=== PATIENT | female | born 1960 | race Caucasian/White ===

== ENCOUNTER 2020-01-28 20:21 | Emergency (ER) | payer OTHER ==
[~2020-01-28] VITALS: Ht 149.9 cm; Wt 138.3 kg
[~2020-01-28 20:21] MED LIST: AMARYL2 MG PO; DOXYCYCLINE 10100 MG PO; DYAZIDE 37.5-21 EACH PO; GLUCOSAMINE-MS1 EAC1 PO; IBUPROFEN 800800 M1 PO; METFORMIN HCL500 MG PO; MEVACOR40 MG PO; MULTIVITAMINS1 EAC7 PO; NEURONTIN 300300 M1 PO; NORCO 10-325 T1 EACH PO; PRILOSEC 20 MG20 MG PO; REGLAN 10 MG TA10 MG PO; VICODIN 5-5001 EACH PO; [UNRECOGNIZED DRUG - MIXTURE]
[2020-01-28 20:25] VITALS: BP 180/109
[2020-01-28] MEDS ORDERED: LISINOPRIL-HCT1 EAC1 PO (20:32)
[2020-01-29 00:12] LABS: ABSOLUTE NEUTROPHILS 5.7 thou/uL (1.4-8.2); BASOPHILS 0.6 % (0.0-2.0); CALCIUM 9.3 mg/dL (8.5-10.1); EOSINOPHILS 0.9 % (0.0-3.0); HEMATOCRIT 40.7 % (37.0-47.0); HEMOGLOBIN 13.9 gm/dL (12.0-15.0); LYMPHOCYTES 28.2 % (24.0-44.0); MCH 30.2 pg (26.0-34.0); MCHC 34.1 g/dL (28.0-37.0); MCV 88.5 fL (80.0-100.0); MONOCYTES 7.6 % (1.0-8.0); PLATELET COUNT 204 thou/uL (150-400); POLYS 62.7 % (36.0-66.0); POTASSIUM 3.6 mmol/L (3.5-5.1); RDW 13.6 % (10.5-14.5); WBC 9.1 thou/uL (4.0-11.0)
[2020-01-29 00:17] LABS: ALBUMIN 3.7 g/dL (3.4-5.0); TOTAL BILIRUBIN 0.5 mg/dL (0.2-1.0); TOTAL PROTEIN 7.3 g/dL (6.4-8.2)
[2020-01-29] MEDS ORDERED: ZPAK PO (00:44)
[2020-01-29] MEDS ORDERED: GUAIFEN-CODEINE10 ML PO (00:44)
--- NOTE | 2020-01-29 07:09 | EKG ---
[facility] [address] ELECTROCARDIOGRAM REPORT Name: CONRAD IGNACIO [id number] Admission: 01/28/20 Attend Phys: Discharge: 01/29/20 Date of : 58 Report #: [id number] THIS REPORT FOR: cc: Demetrius Torrez MD, Christopher B. MD Santiago, Patrick MD [facility] ~ THIS REPORT FOR: //name// [facility] ED Test Date: 2020-01-28 Test Time: 22:17:28 Pat Name: CONRAD IGNACIO Department: Room: Gender: F Data Programmer: josé miguel : 1960 Requested By: Joseph Fontenot Order Number: [id number] MD: Navin Mercado Measurements Intervals [place] Rate: 102 P: 35 MT: 164 QRS: 22 QRSD: 86 T: -4 QT: 332 QTc: 433 Interpretive Statements Sinus tachycardia Low voltage, precordial leads Compared to ECG 06/15/2015 15:32:09 Low QRS voltage now present Sinus rhythm no longer present Electronically Signed On 01-29-2020 7:09:52 EDUCATION COUNSELOR by Navin Mercado [email or web address] <ELECTRONICALLY SIGNED> By: Navin Mercado MD, FACC 01/29/20 0709 16 Navin Mercado MD, [facility] /EPI
== END 2020-01-29 01:09 | disposition home or self-care (01) ==
LOC: ER 20:21
PROVIDERS: Emergency Medicine
DX: J06.9 Acute upper respiratory infection, unspecified (principal); R06.02 Shortness of breath; I10 Essential (primary) hypertension; E78.5 Hyperlipidemia, unspecified; Z90.49 Acquired absence of other specified parts of digestive tract; Z79.899 Other long term (current) drug therapy; Z79.1 Long term (current) use of non-steroidal anti-inflammatories (NSAID)

== ENCOUNTER 2020-05-13 14:18 | Inpatient (IN) | payer OTHER ==
[~2020-05-13] VITALS: Ht 149.9 cm; Wt 138.3 kg
[~2020-05-13 14:18] MED LIST changes: +GUAIFEN-CODEINE10 ML PO; +LISINOPRIL-HCT1 EAC1 PO; +ZPAK PO
[2020-05-13 14:21] VITALS: BP 178/85
[2020-05-13] MEDS ORDERED: AZELASTINE137 MCG/0. SPRAY (14:24)
[2020-05-13 15:22] LABS: ABSOLUTE NEUTROPHILS 4.5 thou/uL (1.4-8.2); BASOPHILS 0.6 % (0.0-2.0); EOSINOPHILS 1.2 % (0.0-3.0); HEMATOCRIT 39.2 % (37.0-47.0); HEMOGLOBIN 12.7 gm/dL (12.0-15.0); LYMPHOCYTES 25.9 % (24.0-44.0); MCHC 32.4 g/dL (28.0-37.0); MCV 89.7 fL (80.0-100.0); MONOCYTES 7.3 % (1.0-8.0); PLATELET COUNT 186 thou/uL (150-400); RBC 4.37 mil/uL (4.20-5.00)
[2020-05-13 15:29] LABS: ANION GAP 8 mmol/L (7-16); BUN 15 mg/dL (7-18); CALCIUM 9.6 mg/dL (8.5-10.1); CHLORIDE 104 mmol/L (98-107); CO2 28 mmol/L (21-32); CREATININE 0.7 mg/dL (0.6-1.0); GLUCOSE 101 mg/dL (74-106); POTASSIUM 3.3 mmol/L (3.5-5.1); SODIUM 140 mmol/L (136-145)
[2020-05-13 15:39] LABS: ALBUMIN 3.7 g/dL (3.4-5.0); AMYLASE 86 U/L (25-115); DIRECT BILIRUBIN 0.2 mg/dL (<0.1-0.2); LIPASE 311 U/L (73-393); MAGNESIUM 1.2 mg/dL (1.8-2.4); PHOSPHORUS 3.8 mg/dL (2.6-4.7); SGOT 22 U/L (15-37); SGPT 33 U/L (14-59); TOTAL BILIRUBIN 0.8 mg/dL (0.2-1.0); TOTAL PROTEIN 7.2 g/dL (6.4-8.2); TROPONIN-I <0.06 ng/mL (<0.06)
[2020-05-13 17:36] LABS: URINE BILIRUBIN NEGATIVE (Negative); URINE BLOOD TRACE (Negative); URINE CLARITY CLEAR; URINE COLOR YELLOW; URINE GLUCOSE-RANDOM* NEGATIVE (Negative); URINE KETONES NEGATIVE (Negative); URINE PROTEIN (DIPSTICK) 2+ (Negative); URINE SPECIFIC GRAVITY >= 1.030 (1.005-1.035); URINE UROBILINOGEN 0.2 E.U./dl (0.2-1.0)
[2020-05-13 17:37] LABS: URINE LEUKOCYTES-REFLEX 1+ (Negative); URINE NITRITE-REFLEX POSITIVE (Negative)
[2020-05-13 17:51] LABS: BACTERIA-REFLEX >30 Many /HPF (None Seen); MUCUS 0-3 Light strn/LPF (None Seen)
[2020-05-13 17:52] LABS: URINE RBC 0-2 Rare /HPF (0-2); URINE WBC-REFLEX >25 Many /HPF (0-5)
[2020-05-13 17:53] LABS: SQUAMOUS None Seen /LPF (0-3)
[2020-05-13 17:54] LABS: CASTS None Seen /LPF (None Seen); CRYSTALS None Seen /LPF (None Seen); YEAST-REFLEX Present (None Seen)
[2020-05-13 18:33] VITALS: BP 158/84
--- NOTE | 2020-05-13 18:34 | NUR ---
CALLED 2N- INFORMED MANAGEMENT ACCOUNTS MANAGER HANDOFF TOOL HAS BEEN SENT
[2020-05-13 18:46] VITALS: BP 157/85
--- NOTE | 2020-05-13 19:22 | NUR ---
WAS NOTIFIED PATIENT IS GOING TO ROOM 356, ATTEMPTED TO CALL REPORT WAS NOTIFIED NURSE IS IN REPORT AND NEEDS APPROX 5-10 MINUTES.
[2020-05-13 19:31] VITALS: BP 158/85
[2020-05-13 19:58] VITALS: BP 157/102
--- NOTE | 2020-05-14 00:44 | NUR ---
PT ARRIVED TO THE FLOOR VIA CART WITH ER STAFF. PLACED IN ROOM 356. ADMISSION ASSESSMENTS COMPLETED. SEE CHARTING. ORDERS IN PROGRESS.
[2020-05-14 04:35] VITALS: BP 143/91
[2020-05-14 06:14] LABS: CALCIUM 9.1 mg/dL (8.5-10.1); CREATININE 0.7 mg/dL (0.6-1.0)
--- NOTE | 2020-05-14 07:17 | EKG ---
[place] [address] [facility] [place] [address] ELECTROCARDIOGRAM REPORT Name: CONRAD IGNACIO Room #: 356-P [facility]#: [id number] Admission: 05/13/20 Attend Phys: Chayito Claudio MD Discharge: Date of : 58 Report #: [id number] [facility] ED Test Date: 2020-05-13 Test Time: 16:07:55 Pat Name: CONRAD IGNACIO Department: Room: 356 Gender: F Traffic Engineer: KERMIT : 1960 Requested By: Jomar Cain Order Number: [id number] MD: Navin Mercado Measurements Intervals [place] Rate: 93 P: 39 PA: 182 QRS: 30 QRSD: 82 T: 1 QT: 350 QTc: 436 Interpretive Statements Sinus rhythm Borderline T abnormalities, inferior leads Compared to ECG 01/28/2020 22:17:28 T-wave abnormality now present Sinus tachycardia no longer present Electronically Signed On 05-14-2020 7:17:34 CDT by Navin Mercado [email or web address] <ELECTRONICALLY SIGNED> By: Navin Mercado MD, [facility] 05/14/20 0717 06 06 Navin Mercado MD, FACC /EPI
[2020-05-14 08:46] VITALS: BP 144/74
--- NOTE | 2020-05-14 14:05 | 2DMMODE ---
[facility] [place] [address] 2 D/M-MODE ECHOCARDIOGRAM Name: CONRAD IGNACIO Room #: 356-P ADM IN M.R.#: [id number] Admission: 05/13/20 Attend Phys: Chayito Claudio MD Discharge: Date of : 58 Report #: [id number] THIS REPORT FOR: cc: Demetrius Torrez MD, Christopher B. MD Santiago, Patrick MD [facility] ~ APPROVED REPORT Study performed: 05/14/2020 12:50:17 EXAM: Comprehensive 2D, Doppler, and color-flow Echocardiogram Patient Location: Bedside Room #: 356 Status: routine BSA: 2.26 HR: 89 bpm BP: 143/91 mmHg Rhythm: NSR Other Information Study Quality: Adequate Indications Congestive Heart Failure Diabetes Dyspnea Hypertension/HDD Morbid obesity 2D Dimensions RVDd: 40.75 mm IVSd: 9.46 (7-11mm) LVOT Diam: 21.35 (18-24mm) LVDd: 48.68 mm PWd: 10.36 (7-11mm) Ascending Ao: 28.87 (22-36mm) LVDs: 33.01 (25-40mm) Left Atrium: 36.79 (27-40mm) Aortic Root: 32.25 mm IVC: 24.00 mm Volumes Left Atrial Volume (Systole) Single Plane 4CH: 68.36 mL Single Plane 2CH: 39.97 mL LA ESV Index: 25.00 mL/m2 Aortic Valve [facility] [address] [place] [address] 2 D/M-MODE ECHOCARDIOGRAM Name: CONRAD IGNACION Room #: 356-P [facility] IN .R.#: [id number] Admission: 05/13/20 Attend Phys: Bang Luke Discharge: Date of : 58 Report #: [id number] AoV Peak Shawn.: 1.83 m/s AO Peak Gr.: 13.38 mmHg LVOT Max P.10 mmHg LVOT Max V: 1.24 m/s TAYA Vmax: 2.42 cm2 Mitral Valve E/A Ratio: 0.7 MV Decel. Time: 264.42 ms MV E Max Shawn.: 0.81 m/s MV A Shawn.: 1.12 m/s MV PHT: 76.68 ms IVRT: 115.34 ms Pulmonary Valve PV Peak Shawn.: 1.21 m/s PV Peak Gr.: 5.88 mmHg Pulmonary Vein P Vein S: 0.84 m/s P Vein A: 0.37 m/s P Vein D: 0.47 m/s P Vein A Dur.: 110.7 msec P Vein S/D Ratio: 1.79 Tricuspid Valve TR Peak Shawn.: 3.04 m/s TR Peak Gr.: 37.07 mmHg PA Pressure: 47.00 mmHg Left Ventricle The left ventricle is normal size. There is normal LV segmental wall motion. There is normal left ventricular wall thickness. The left ventricular systolic function is normal. The left ventricular ejection fraction is within the normal range. LVEF is 55-60%. Grade I - abnormal relaxation pattern. Right Ventricle The right ventricle is normal size. The right ventricular systolic function is normal. Atria Left atrium is at the upper limits of normal. Right atrium is at the upper limits of normal. Aortic Valve The aortic valve is normal in structure. No aortic regurgitation is present. There is no aortic valvular stenosis. Mitral Valve [facility] [address] [place] [address] 2 D/M-MODE ECHOCARDIOGRAM Name: CONRAD IGNACIO Room #: 356-P ADM IN .R.#: [id number] Admission: 05/13/20 Attend Phys: Bang Luke Discharge: Date of : 58 Report #: [id number] The mitral valve is normal in structure. Mild mitral regurgitation. No evidence of mitral valve stenosis. Tricuspid Valve The tricuspid valve is normal in structure. There is mild tricuspid regurgitation. Estimated PAP 47 mmHg. There is moderate pulmonary hypertension. Pulmonic Valve The pulmonary valve is normal in structure. There is no pulmonic valvular regurgitation. Great Vessels The aortic root is normal in size. IVC is dilated and collapses <50% with inspiration. Pericardium There is no pericardial effusion. Critical Notification Physician Notified <Conclusion> Normal left ventricular size/wall thickness Ejection fraction 55% Grade 1 diastolic dysfunction Normal right ventricular size/function Borderline enlargement left atrium Color-flow Doppler study was performed of the aortic/mitral/tricuspid/pulmonary valve Normal aortic valve structure and function Mild mitral valve insufficiency Mild tricuspid valve insufficiency Pulmonary systolic pressure estimated at 47 mmHg Normal aortic root size Normal IVC size and response to respiration No pericardial effusion <ELECTRONICALLY SIGNED> By: Navin Mercado MD, FACC 05/14/20 1404 140 140 Navin Mercado MD, FACC /INF
[2020-05-14 15:01] VITALS: BP 150/91
--- NOTE | 2020-05-14 15:40 | NUR ---
INITIAL ASSESSMENT: SW reviewed chart and spoke with nursing and attending physician. Pt was admitted from home due to hypokalemia. Pt was placed in Enhanced Isolation to r/o COVID. Pt's test was negative. Pt is on IV abx and lasix. SW spoke with pt via phone. Introduced role of SW. Pt is alert/orientated x 4. Pt reports she lives at home. Prior to admission, pt was independent with ADLs. Pt has a cane and walker to use if needed. No hx of services or post-acute placement. Pt's PCP is Dr. Dougie Torrez. Plan is for pt to discharge home when medically stable. SW is following to assist as needed with discharge planning.
[2020-05-14 17:35] VITALS: BP 152/90
--- NOTE | 2020-05-14 19:25 | NUR ---
STARTED ON BOWEL PREP THIS PM FOR PROCEDURE IN AM. SHE IS DRINKING VERY WELL. SHE CONT TO AHVE GENERALIZED PAIN AND PRN PAIN MEDICATION ADMINISTERED. WILL CONT WIHT PLAN OF CARE.
[2020-05-14 20:19] VITALS: BP 155/90
[2020-05-15 03:38] VITALS: BP 139/83
--- NOTE | 2020-05-15 07:42 | NUR ---
ASSUMED CARE AT 1900. PT FINISHING BOWEL PREP, HAD NAUSEA WITH VOMITING OF 500 ML GREEN LIQUID; ZOFRAN GIVEN , NO FURTHER NAUSEA OVERNIGHT. GAVE PAIN MEDS Q4 OVERNIGHT. PT REFUSED NOCTURNAL SAT STUDY, STATING SHE DID NOT WANT TO BE HOOKED UP TO SOMETHING ELSE WHILE TRYING TO DO A BOWEL PREP AND GETTING UP TO BATHROOM FREQUENTLY; SHE REPORTED BEING MORE OPEN TO COMPLETING IT MONDAY NIGHT. STOOL THIS AM WAS A SEE-THROUGH DEEP YELLOW COLOR. NO OTHER CONCERNS, SHIFT REPORT GIVEN O700.
[2020-05-15 09:00] VITALS: BP 152/80
[2020-05-15 12:44] VITALS: BP 150/96
[2020-05-15 14:42] LABS: CALCIUM 9.3 mg/dL (8.5-10.1); CREATININE 0.8 mg/dL (0.6-1.0); POTASSIUM 3.5 mmol/L (3.5-5.1)
[2020-05-15 16:35] VITALS: BP 151/93
--- NOTE | 2020-05-15 16:40 | NUR ---
SW reviewed chart and spoke with nursing and attending physician. Or had EGD/colonoscopy today. Pt is on 3L of O2 and IV abx. Possible weekend discharge. SW met with pt at bedside to discuss discharge plan. Pt was not on O2 prior to admission. Pt will need a rest/exercise oximetry completed prior to discharge to determine if pt needs home O2. RT to assist if pt needs home O2 over the weekend. Pt will have transportation home when discharged. JEISON is following to assist as needed with discharge planning.
[2020-05-15 19:27] VITALS: BP 162/88
--- NOTE | 2020-05-15 19:28 | NUR ---
RN ASSUMED PT'S CARE AT 0700AM , PT IS A&OX3, PT IS TOLERATVED EGD TODAY, PT DENIES N/V AND ABD MONSERRAT, PT 'S O2 2L/MIN/NC, PT'S VS ARE STABLE BY THIS TIME.
--- NOTE | 2020-05-15 21:19 | P ---
[facility] [place] [address] PROCEDURE REPORT Name: CONRAD IGNACIO Room #: 356-P ADM IN M.R.#: [id number] Admission: 05/13/20 Attend Phys: Chayito Claudio MD Discharge: Date of : 58 Report #: [id number] THIS REPORT FOR: cc: Demetrius Torrez MD, Christopher B. MD McElhinney, Christian C. MD ~ DATE OF SERVICE: 05/15/2020 PROCEDURE PERFORMED: Colonoscopy with biopsies and polypectomy. HISTORY OF PRESENT ILLNESS: The patient is a 59-year-old female with abdominal pain, nausea, and bloating. CT scan of the abdomen and pelvis on admission showing sigmoid diverticulosis. No evidence of diverticulitis or calcified omental infarction. No family history of colon cancer. DESCRIPTION OF PROCEDURE: The risks and benefits of the procedure were explained to the patient, those risks including but not limited to bleeding, perforation and the risk of sedation. She understood these risks and gave informed consent. Sedation was given using propofol per anesthesia. Next, a digital rectal exam showed small external hemorrhoids, otherwise normal. Next, using a standard Olympus colonoscope, the scope was placed in the patient's anus and advanced under direct vision to the cecum. The overall prep was good. The cecum and ileocecal valve were normal in appearance. Terminal ileum was intubated and normal in appearance. Ascending, transverse and descending colon were normal. Random biopsies were obtained to rule out the possibility of microscopic colitis. Diverticulosis was noted throughout the sigmoid colon, no evidence of inflammation. In the rectum, an 8 mm partially pedunculated polyp was noted. This was removed by snare cautery. Also noted on retroflexion were small internal hemorrhoids, nonbleeding. At this point, the scope was then withdrawn and the procedure terminated. The patient tolerated the procedure well. IMPRESSION: 1. Rectal polyp. 2. Sigmoid diverticulosis. 3. Internal and external hemorrhoids. 4. Otherwise, normal colonoscopy. RECOMMENDATIONS: 1. Await biopsy results. 2. Etiology of abdominal pain is unclear. We will await biopsies from EGD and colonoscopy today. We will start to advance diet. Consider Levsin on a p.r.n. basis. [address] [address] PROCEDURE REPORT Name: CONRAD IGNACIO Room #: 356-P [facility] IN M.R.#: [id number] Admission: 05/13/20 Attend Phys: Chayito Claudio MD Discharge: Date of : 58 Report #: [id number] Thank you for allowing me to participate in her care. <ELECTRONICALLY SIGNED> By: Sanya Cottrell MD 05/15/209 1156 28 Sanya Cottrell MD /nt
--- NOTE | 2020-05-15 21:19 | P ---
[facility] [place] [address] PROCEDURE REPORT Name: CONRAD IGNACIO Room #: 356-P [facility] IN M.R.#: [id number] Admission: 05/13/20 Attend Phys: Chayito Claudio MD Discharge: Date of : 58 Report #: [id number] THIS REPORT FOR: cc: Demetrius Torrez MD, Christopher B. MD McElhinney, Christian C. MD ~ DATE OF SERVICE: 05/15/2020 PROCEDURE PERFORMED: Upper endoscopy with biopsies and esophageal dilation. HISTORY OF PRESENT ILLNESS: The patient is a 59-year-old female who presented to the Emergency Room with abdominal pain and nausea. It has been ongoing for several weeks. She also complains of abdominal bloating, pain radiates to her right side, worse after eating. She has had a previous cholecystectomy. She also complains of dysphagia with solids only. She does have a history of gastroesophageal reflux disease and history of hiatal hernia and takes Prilosec on a daily basis. CT scan of the abdomen and pelvis shows thickened stomach and distal esophagus, which could reflect gastritis or reflux. Plan is for EGD and colonoscopy today. DESCRIPTION OF PROCEDURE: The risks and benefits of the procedure were explained to the patient, those risks including but not limited to bleeding, perforation and the risk of sedation. She understood these risks and gave informed consent. Sedation was given using propofol per anesthesia. Next, using a standard Olympus upper endoscope, the scope was placed in the patient's mouth and advanced under direct vision through the esophagus, stomach and into the second portion of the duodenum. The larynx was normal in appearance. The esophagus was normal throughout. The GE junction was normal. No evidence of esophagitis. Upon entering the stomach, a small hiatal hernia was noted. Overall, there was a mild gastritis in the body and antrum. Biopsies were obtained to rule out H. pylori. No evidence of ulcerations or erosions. The pylorus was normal and patent. The duodenal bulb, first and second portion were all normal. Because of the patient's history of abdominal bloating, biopsies were obtained to rule out the possibility of celiac sprue. Scope was then brought back up into the patient's stomach and a Savary guidewire was inserted through the scope, leaving the guidewire in place as the scope was then withdrawn. Next, a 51-Italian Savary dilation was then performed of the esophagus without difficulty. The wire and dilator removed. The scope was reintroduced into the patient's stomach. There was no evidence of mucosal tear after dilation. The scope was then withdrawn and the procedure terminated. The patient tolerated the procedure well. IMPRESSION: 1. Small hiatal hernia. 2. Mild gastritis. [address] [address] PROCEDURE REPORT Name: CONRAD IGNACIO Room #: 356-P [facility] IN M.R.#: [id number] Admission: 05/13/20 Attend Phys: Chayito Claudio MD Discharge: Date of : 58 Report #: [id number] 3. Otherwise, normal upper endoscopy. RECOMMENDATIONS: 1. Await biopsy results. 2. Continue PPI therapy. 3. Observe the patient post-dilation. 4. We will proceed with colonoscopy next today. Thank you for allowing me to participate in her care. <ELECTRONICALLY SIGNED> By: Sanya Cottrell MD 05/15/20 2119 1127 192 Sanya Cottrell MD /nt
[2020-05-15 23:33] VITALS: BP 145/73
[2020-05-16 03:42] VITALS: BP 125/75
[2020-05-16 08:00] VITALS: BP 140/78
[2020-05-16 11:39] VITALS: BP 145/85
[2020-05-16 13:47] LABS: URINE BILIRUBIN NEGATIVE (Negative); URINE BLOOD 1+ (Negative); URINE CLARITY CLEAR; URINE COLOR YELLOW; URINE GLUCOSE-RANDOM* NEGATIVE (Negative); URINE KETONES NEGATIVE (Negative); URINE LEUKOCYTES-REFLEX NEGATIVE (Negative); URINE NITRITE-REFLEX NEGATIVE (Negative); URINE PROTEIN (DIPSTICK) 1+ (Negative); URINE UROBILINOGEN 0.2 E.U./dl (0.2-1.0)
[2020-05-16 13:59] LABS: SQUAMOUS 0-3 Few /LPF (0-3)
[2020-05-16 14:01] LABS: BACTERIA-REFLEX None Seen /HPF (None Seen); CASTS None Seen /LPF (None Seen); CRYSTALS None Seen /LPF (None Seen); URINE RBC None Seen /HPF (0-2); URINE WBC-REFLEX 0-5 Rare /HPF (0-5)
[2020-05-16 16:13] VITALS: BP 158/78
--- NOTE | 2020-05-16 18:40 | NUR ---
RN ASSUMED PT'S CARE AT 0700AM, PT IS A&OX3, PT IS ON O2 2L/MIN/NC, PT STILL HAS SOB WITH ACTIVITIES, PT IS CONTINUING IV ABX AND PAIN MAANGEMENT , PT'S VS AND O2SAT ARE STABLE BY THIS TIME. PT GETS UP TO BATH ROOM BY HERSELF.
[2020-05-16 19:24] VITALS: BP 178/71
[2020-05-17 03:38] VITALS: BP 151/91
[2020-05-17 03:45] LABS: ABSOLUTE NEUTROPHILS 6.4 thou/uL (1.4-8.2); BASOPHILS 0.2 % (0.0-2.0); EOSINOPHILS 0.1 % (0.0-3.0); HEMATOCRIT 39.3 % (37.0-47.0); HEMOGLOBIN 12.7 gm/dL (12.0-15.0); MCH 29.3 pg (26.0-34.0); MCHC 32.4 g/dL (28.0-37.0); MCV 90.2 fL (80.0-100.0); MONOCYTES 7.9 % (1.0-8.0); PLATELET COUNT 209 thou/uL (150-400); POLYS 74.8 % (36.0-66.0); RBC 4.36 mil/uL (4.20-5.00); RDW 14.1 % (10.5-14.5); WBC 8.5 thou/uL (4.0-11.0)
[2020-05-17 03:54] LABS: CALCIUM 9.2 mg/dL (8.5-10.1); CREATININE 0.8 mg/dL (0.6-1.0); PHOSPHORUS 2.8 mg/dL (2.5-4.9); POTASSIUM 3.4 mmol/L (3.5-5.1); TOTAL BILIRUBIN 0.5 mg/dL (0.2-1.0)
[2020-05-17 03:55] LABS: ALBUMIN 3.7 g/dL (3.4-5.0); TOTAL PROTEIN 7.4 g/dL (6.4-8.2)
[2020-05-17 08:30] VITALS: BP 150/90
[2020-05-17 12:29] VITALS: BP 144/87
[2020-05-17 15:01] LABS: BE(vivo) 2.6 mmol/L (-2 to +3); HCO3 26.3 mmol/L (22.0-26.0); PCO2 37.6 mmHg (35.0-45.0); PO2 76.9 mmHg (80.0-100.0); pH 7.463 (7.360-7.450); sO2 96.1 % (92.0-98.0)
[2020-05-17 15:11] VITALS: BP 164/101
[2020-05-17 16:29] VITALS: BP 142/90
--- NOTE | 2020-05-17 19:39 | NUR ---
RN ASSUMED PT'S CARE AT 0700AM, PT IS A&OX4, PT IS ON O2 2L/MIN/NC, PT'S VS ARE STABLE, BUT PT HAS SOB WITH ACTIVITIES, PULMONOLDY CONSULT TODAY, NEW ORDER RECEIVED,
[2020-05-17 19:45] VITALS: BP 143/73
[2020-05-18 04:37] VITALS: BP 141/83
[2020-05-18 05:12] LABS: ANION GAP 12 mmol/L (7-16); BUN 21 mg/dL (7-18); CALCIUM 9.2 mg/dL (8.5-10.1); CHLORIDE 99 mmol/L (98-107); CO2 29 mmol/L (21-32); CREATININE 0.7 mg/dL (0.6-1.0); GLUCOSE 208 mg/dL (74-106); PHOSPHORUS 4.1 mg/dL (2.5-4.9); POTASSIUM 3.5 mmol/L (3.5-5.1); SODIUM 140 mmol/L (136-145); TROPONIN-I <0.06 ng/mL (<0.06)
--- NOTE | 2020-05-18 07:45 | NUR ---
PROGRESS PT PAIN CONTROLLED WITH ORAL PAIN MEDS IV ANTIBIOTICS GIVEN ORDERED UP AD SURESH VOIDING QS. VSS CONTINUE POC.
[2020-05-18 07:46] VITALS: BP 148/86
[2020-05-18 08:36] LABS: CHOLESTEROL 212 mg/dL (<200); HDL CHOLESTEROL 75 mg/dL (>40); LDL CHOLESTEROL 120 mg/dL (<100); TC:HDL 2.8 Ratio (Not establshd); TRIGLYCERIDE 89 mg/dL (<150); VLDL 18 mg/dL (<40)
--- NOTE | 2020-05-18 11:05 | NUR ---
REFERRAL GIVEN TO MAIA AT [facility] FOR HOME O2 THERE IS A TANK IN CASE MANAGEMENT OFFICE FOR PT TO DC WITH. JUST NEED SCRIPT FAXED TO [facility] FAX# [phone].
[2020-05-18 11:24] VITALS: BP 147/84
--- NOTE | 2020-05-18 14:06 | PATH ---
[facility] [address] [address] [place] [address] PATHOLOGY RPT PROCEDURE Name: CONRAD ARAMBULA Room #: 359-P ADM IN M.R.#: [id number] Admission: 05/13/20 Date of : 58 Discharge: Report #: [id number] Path Case #: [id number] [facility] Accession Number: [id number] . 01 Material submitted: . PART A: duodenum - DUODENAL BIOPSY PART B: gastrointestinal site - GASTRITIS PART C: gastrointestinal site - RANDOM BIOPSY PART D: rectum - RECTAL POLYP . 01 Clinical history: . ABDOMINAL PAIN,GERD,NAUSEA RECTAL POLYP,HEMORRHOID,DIVERTICULITIS HYPOKALEMIA,HYPONATREMIA,N/V A: R/O SPRUE C: R/O MICROSCOPIC COLITIS . 02 Diagnosis: A. Small bowel mucosa, duodenum R/O sprue, endoscopic biopsy: - No diagnostic abnormalities present. - Negative for villous blunting or increase in intraepithelial lymphocytes. . B. Gastric mucosa, gastritis, endoscopic biopsy: - Mild chronic inflammation. - Negative for intestinal metaplasia or atrophy. - Negative for Helicobacter pylori (properly controlled immunohistochemical stain performed). . C. Large intestinal mucosa, random, R/O microscopic colitis, endoscopic biopsy: - Mild focal acute cryptitis, see comment. - Negative for dysplasia or malignancy. . D. Polyp, rectal polyp, endoscopic biopsy: - Hyperplastic polyp. - Negative for dysplasia. (IUV:nelson; 05/18/2020) [facility] 05/18/2020 1238 Local . 02 Comment: C. Sections of the colonic mucosa designated "random colon" show focal cryptitis, and a moderately cellular lamina propria composed predominantly of lymphocytes and plasma cells and occasional eosinophils. Surface ulceration is not identified. There are no crypt abscesses, granulomas or viral inclusions. The process affects all the fragments with a similar intensity. Given the description, the differential diagnosis includes [address] [address] PATHOLOGY RPT PROCEDURE Name: CONRAD ARAMBULA Room #: 359-P [facility] IN .R.#: [id number] Admission: 05/13/20 Date of : 58 Discharge: Report #: [id number] Path Case #: [id number] mild acute self limited episode of colitis, reaction to bowel preparation, early infectious-type of colitis, a resolving episode of colitis, medication or drug induced colitis, as well as diverticulitis. Please correlate with clinical as well as endoscopic findings. (IUV:nelson 05/18/2020) . 02 Electronically signed: . Mony Mccrary MD, Pathologist NPI- [id number] . 01 Gross description: . A. Received in formalin labeled "Conrad Arambula, duodenal BX rule out sprue" are two garcia-brown soft tissue fragments measuring in aggregate 0.6 x 0.6 x 0.1 cm. The specimen is submitted entirely in A1. . B. Received in formalin labeled "Conrad Arambula, gastritis" are two garcia-brown soft tissue fragments measuring in aggregate 0.7 x 0.6 x 0.1 cm. The specimen is submitted entirely in B1. . C. Received in formalin labeled "Conrad Arambula, random BX rule out microscopic colitis" are multiple garcia-brown soft tissue fragments measuring in aggregate 1.2 x 0.5 x 0.1 cm. The specimen is submitted entirely in C1. . D. Received in formalin labeled "Conrad Arambula, rectal polyp" is a garcia-brown nodular mucosal polyp measuring 0.7 x 0.6 x 0.5 cm. The margin is inked and the specimen is bisected and submitted in D1. ([facility] 05/17/2020[place] [facility] 05/18/2020 1231 Local . 02 Pathologist provided ICD-10: K29.50, K62.1, R10.9, K21.9, R11.0 . 02 CPT . 951597, 846600, 078407, 952007, N27686 Specimen Comment: A courtesy copy of this report has been sent to [phone] Specimen Comment: Report sent to Performed at: 01 [facility] [address] [place] [address], [place] [id number] MD Kory Batista MD Phone: [phone] Performed at: [address] [id number] MD Mony Mccrary MD Phone: [phone]
[2020-05-18 15:27] VITALS: BP 174/93
--- NOTE | 2020-05-18 16:28 | NUR ---
JEISON reviewed chart and spoke with nursing and attending physician. Pt is slowly progressing towards goals for discharge. Pt is on 2L of O2, IV lasix and IV steroids. Pulmonary and cardiology consulted. Pt will need home O2 at time of discharge. marketing planner faxed referral to [facility], who can accept pt on service. Will need script for O2 upon discharge. PT/OT ordered today to evaluate pt for any additional discharge needs. Plan is for pt to discharge home when medically stable. JEISON is following to assist as needed with discharge planning.
--- NOTE | 2020-05-18 19:23 | NUR ---
PT AMBULATING IN ROOM WITH STEADY GAIT. VSS. STATES PAIN IS WELL CONTROLLED ON CURRENT PAIN REGIMEN. SOA WITH MOVEMENT. O2 REMAINS AT 2L/NC. PT STATES SHE IS HOPING TO GO HOME TOMORROW. REPORT GIVEN TO GUEST SERVICES REPRESENTATIVE RN.
[2020-05-18 20:43] VITALS: BP 162/90
[2020-05-19 06:02] VITALS: BP 173/92
--- NOTE | 2020-05-19 07:15 | NUR ---
Patient progressing towards outcome goals. Up adlib, short of breath and tachycardic with activity, recovers after a few minutes of rest. NSR, Vital signs stable.
[2020-05-19] MEDS ORDERED: LASIX 40 MG TAB40 M1 PO (08:15)
[2020-05-19] MEDS ORDERED: ROSUVASTATIN CA20 MG PO (08:15)
[2020-05-19] MEDS ORDERED: ZESTRIL40 MG PO (08:15)
[2020-05-19] MEDS ORDERED: KLOR-CON M2020 MEQ PO (08:15)
[2020-05-19] MEDS ORDERED: ASA81BEC PO (08:17)
[2020-05-19 11:17] VITALS: BP 126/85
[2020-05-19] MEDS ORDERED: IPRAT-ALBUT 0.5-3 ML INH (11:53)
[2020-05-19] MEDS ORDERED: HYOSCYAMINE0.125 M1 PO (11:53)
--- NOTE | 2020-05-19 14:24 | NUR ---
CARDIOLOGY PAGED FOR STRESS TEST ON OUTPT INSTEAD OF INPT
[2020-05-19 14:47] VITALS: BP 126/85
[2020-05-19 15:00] VITALS: BP 126/85
--- NOTE | 2020-05-19 15:05 | NUR ---
DISCHARGE NOTE: SW reviewed chart and spoke with nursing and attending physician. Pt is medically stable for discharge home today with Home O2 and nebulizer. SW faxed rest/exercise oximetry results and scripts to [facility]. Notified [facility] liaison, Micah, of pt's discharge. Portable O2 tank in pt's room. SW met with pt at bedside to provide update and discuss discharge plan. Pt is aware and in agreement with plan. Pt's son will provide transportation home. Contact info for [facility] placed in pt's discharge summary. No additional SW needs identified at this time, but is available to assist should needs arise.
[2020-05-19 16:30] VITALS: BP 126/85
[2020-05-19 16:32] VITALS: BP 126/85
== END 2020-05-19 16:30 | disposition home or self-care (01) | DRG 193 ==
LOC: ER 14:18 → 3W 18:12 → EROBS 18:12 → 3W 19:16
PROVIDERS: Emergency Medicine; Internal Medicine; Internal Medicine Pulmonary Disease; ADMIT Hospitalist; ATTEND Hospitalist
PROC: 0DBE8ZX Excision of Large Intestine, Via Natural or Artificial Opening Endoscopic, Diagnostic (ICD-10-PCS; principal; 2020-05-15)
PROC: 0DBP8ZZ Excision of Rectum, Via Natural or Artificial Opening Endoscopic (ICD-10-PCS; principal; 2020-05-15)
PROC: 0DB68ZX Excision of Stomach, Via Natural or Artificial Opening Endoscopic, Diagnostic (ICD-10-PCS; principal; 2020-05-15)
PROC: 0D758ZZ Dilation of Esophagus, Via Natural or Artificial Opening Endoscopic (ICD-10-PCS; principal; 2020-05-15)
PROC: 0DB98ZX Excision of Duodenum, Via Natural or Artificial Opening Endoscopic, Diagnostic (ICD-10-PCS; principal; 2020-05-15)
DX: J18.9 Pneumonia, unspecified organism (principal); J96.01 Acute respiratory failure with hypoxia; R65.11 Systemic inflammatory response syndrome (SIRS) of non-infectious origin with acute organ dysfunction; N30.01 Acute cystitis with hematuria; Z68.44 Body mass index [BMI] 60.0-69.9, adult; E87.0 Hyperosmolality and hypernatremia; K29.70 Gastritis, unspecified, without bleeding; K57.30 Diverticulosis of large intestine without perforation or abscess without bleeding; K44.9 Diaphragmatic hernia without obstruction or gangrene; M19.90 Unspecified osteoarthritis, unspecified site; E78.5 Hyperlipidemia, unspecified; E83.42 Hypomagnesemia; K21.00 Gastro-esophageal reflux disease with esophagitis, without bleeding; K62.1 Rectal polyp; K64.4 Residual hemorrhoidal skin tags; K64.8 Other hemorrhoids; G47.33 Obstructive sleep apnea (adult) (pediatric); E11.9 Type 2 diabetes mellitus without complications; E87.6 Hypokalemia; N20.0 Calculus of kidney; I50.9 Heart failure, unspecified; R13.10 Dysphagia, unspecified; E66.01 Morbid (severe) obesity due to excess calories; K58.9 Irritable bowel syndrome, unspecified; I11.0 Hypertensive heart disease with heart failure; M79.7 Fibromyalgia; J84.10 Pulmonary fibrosis, unspecified; I27.20 Pulmonary hypertension, unspecified; R07.89 Other chest pain; B96.20 Unspecified Escherichia coli [E. coli] as the cause of diseases classified elsewhere; Z20.822 Contact with and (suspected) exposure to COVID-19; I25.2 Old myocardial infarction; Z90.49 Acquired absence of other specified parts of digestive tract; Z82.49 Family history of ischemic heart disease and other diseases of the circulatory system; Z79.899 Other long term (current) drug therapy
CPT/HCPCS: 10879; 62110; 62900; 70005

== ENCOUNTER → 2020-06-02 | Outpatient (CLI) | payer OTHER ==
[~2020-06-02] MED LIST changes: +ASA81BEC PO; +AZELASTINE137 MCG/0. SPRAY; +HYOSCYAMINE0.125 M1 PO; +IPRAT-ALBUT 0.5-3 ML INH; +KLOR-CON M2020 MEQ PO; +LASIX 40 MG TAB40 M1 PO; +ROSUVASTATIN CA20 MG PO; +ZESTRIL40 MG PO
== END ==
LOC: SJCVCIMAG 08:35
PROVIDERS: ATTEND Internal Medicine
DX: R00.0 Tachycardia, unspecified (principal); I49.3 Ventricular premature depolarization; R07.9 Chest pain, unspecified; R06.00 Dyspnea, unspecified; E11.9 Type 2 diabetes mellitus without complications; J44.9 Chronic obstructive pulmonary disease, unspecified; R09.02 Hypoxemia; E78.5 Hyperlipidemia, unspecified; I25.10 Atherosclerotic heart disease of native coronary artery without angina pectoris; I11.0 Hypertensive heart disease with heart failure; I50.9 Heart failure, unspecified; Z98.890 Other specified postprocedural states; Z79.84 Long term (current) use of oral hypoglycemic drugs; Z79.82 Long term (current) use of aspirin; Z79.899 Other long term (current) drug therapy